=== PATIENT | female | born 1945 | race Caucasian/White ===

== ENCOUNTER 2017-09-03 14:05 | Emergency (ER) | payer MEDICARE, SELFPAY ==
[2017-09-03 14:05] VITALS: BP 158/93; PULSE 82; RESP 16; TEMP 36.2; O2SAT 95; BMI 35.6
--- NOTE | 2017-09-03 14:57 | EKG12_ITS ---
Test Reason : Blood Pressure : / mmHG Vent. Rate : 066 BPM Atrial Rate : 066 BPM P-R Int : 176 ms QRS Dur : 086 ms QT Int : 402 ms P-R-T Axes : 005 006 -15 degrees QTc Int : 421 ms Normal sinus rhythm Normal ECG Confirmed by MYLES EDWARDS MD ([id number]), website/blog editor DINAH ROBBINS ([id number] on 09/06/2017 2:52:46 PM Referred By: AMAURY Confirmed By:MYLES EDWARDS MD
--- NOTE | 2017-09-03 14:59 | ED.VISSUMM ---
- ER Visit Summary Date of Service: 09/03/17 Chief Complaint: High blood pressure and blurry vision History of Present Illness: The patient is a 71 F presents for blurry vision and high blood pressure for 1 week. Patient states that when she noted she had blurry vision with an associated full feeling in her head, she went to her neighbors to have her blood pressure checked. It was high so she took an extra atenolol and her symptoms resolved. She has been having the blurry vision return throughout the week and each time we will taken atenolol after seeing her blood pressure is high with resolution of symptoms. Today she decided to get checked out for it. She went to urgent care and was referred here. She normally wears reading glasses but denies needing corrective lenses for any other vision. No fever, chest pain, shortness of breath, abdominal pain, vomiting, diarrhea. She has been taking tramadol and Tylenol for her head discomfort, which she states is chronic for her. History of hypertension and asthma. Physical Examination: Vital signs: afebrile, hemodynamically stable, blood pressure 158/93, no hypoxia on room air General: well nourished, well developed, in no distress Skin: warm, dry, no rash, no pallor HEENT: normocephalic and atraumatic; PERRL, EOMI, no nystagmus, visual tracy intact, vision grossly normal, moist mucous membranes Cardiovascular: regular rate and rhythm without murmurs, no peripheral edema, 2+ pulses all distal extremities Respiratory: No increased work of breathing, lungs are clear to auscultation bilaterally, no rales, rhonchi or wheezing Abdominal: Abdomen is soft, nontender with normoactive bowel sounds, no guarding or rebound, no masses MSK: Moves all extremities, no deformities, normal strength Neuro: Awake and alert, oriented ?4. No facial droop, sensation and motor function intact and symmetric Test Results: Abnormal Lab Results 09/03/17 09/03/17 14:20 14:20 WBC 6.7 RBC 5.08 Hgb 14.7 Hct 45.5 MCV 89.6 MCH 28.9 MCHC 32.3 RDW 12.8 RDW Differential 41.4 Plt Count 281 MPV 10.7 Immature Gran % (Auto) 0.100 Neut % (Auto) 63.7 Lymph % (Auto) 25.0 [place] % (Auto) 7.8 Eos % (Auto) 3.0 Baso % (Auto) 0.4 Absolute Neuts (auto) 4.3 Absolute Lymphs (auto) 1.67 Total Counted Not Reportable Sodium 139 Potassium 3.9 Chloride 103 Carbon Dioxide 29.0 Anion Gap 7 BUN 13 Creatinine 0.77 Estim Creat Clear Calc 41.99 Est GFR (MDRD) Af Amer 96 Est GFR (MDRD) Non-Af 79 BUN/Creatinine Ratio 17.0 Glucose 122 H Calcium 9.1 Troponin I < 0.02 Emergency Department Course and Treatment: Patient had an unremarkable exam. Workup was performed to evaluate for any endorgan damage. EKG showed no ischemic changes. CT of the head showed no masses or intracranial hemorrhage. Troponin negative. Labs were unremarkable. Patient had no further blurry vision. Her blood pressure was not consistent with elevation that should result in endorgan damage or symptomatic issues. Patient was discussed with Dr. Bernardo, who requested that patient's dosage of her atenolol be increased to 50 mg, which is twice her current dose. She will take this new dose daily. She is to follow-up with him within 1-2 weeks. This plan was discussed with the patient who was in agreement. She was discharged home in improved condition and very well-appearing. Treatment Plan: [] Disposition: [] Impression: Established hypertension This note was generated with [employer] dictation software. It may contain incorrect words, spelling, and punctuation that were not noted in review of the chart prior to signing ED Disposition - Plan for ED Patient: Disposition: Home or Assisted Living Chief Complaint: General Illness Instructions: ED HTN Established Referrals: Fernando Bernardo MD [Primary Care Provider] - 1-2 Weeks Additional Instructions: Please increase your dose of atenolol to 50 mg daily. You are currently taking 25 mg daily,, so please take two of your 25 mg tablets to make the new dose. These follow-up with Dr. Bernardo in 1-2 weeks for reevaluation. If at any point you have any worsening of your condition or any new concerning symptoms, please return immediately for another evaluation to the emergency department.
[2017-09-03 15:14] LABS: Absolute Lymphocyte Count 1.67 X10^3/ul (0.83-4.51); Absolute Neutrophil Count 4.3 X10^3/uL (2.0-7.7); Basophil# 0.03 X10^3/uL; Basophil% 0.4 % (0-1); Hematocrit 45.5 % (37-47); Hemoglobin 14.7 g/dl (12.0-15.0); Lymphocyte # 1.67 X10^3/ul (4.0); Mean Corp Hgb Conc 32.3 g/gl (32-36); Mean Corpuscular Hgb 28.9 pg (27.0-32.0); Mean Corpuscular Volume 89.6 fL (81-99); Mean Platelet Vol. 10.7 fl (6.2-12.0); Monocyte# 0.52 X10^3/uL; Monocyte% 7.8 % (0-10); Neutrophil # 4.25 X10^3/uL (2.7-7.7); Neutrophil % 63.7 % (47-70); POSITIVE COUNT NO; POSITIVE DIFFERENTIAL NO; POSITIVE MORPHOLOGY NO; Platelet Count 281 K/mm3 (150-450); RBC Distribution Width CV 12.8 % (11.6-14.6); RBC Distribution Width SD 41.4 fl (35.1-43.9); Red Blood Count 5.08 M/mm3 (4.2-5.4); White Blood Count 6.7 K/mm3 (4.4-11.0)
[2017-09-03 15:27] LABS: Anion Gap 7 (5-15); BUN 13 mg/dL (7-18); Calcium,Total 9.1 mg/dL (8.5-10.1); Chloride 103 mmol/L (98-107); Creatinine, Serum 0.77 mg/dL (0.55-1.02); EST Glomerular Filtration Rate 79 mL/min (>60); Est Glom Filt Rate - Afr Amer 96 mL/min (>60); Estimated Creatinine Clearance 41.99 ml/min; Glucose 122 mg/dL (74-106); Potassium 3.9 mmol/L (3.5-5.1); Sodium Level 139 mmol/L (136-145)
--- NOTE | 2017-09-03 16:10 | RAD_ITS ---
STUDY: X-RAY CHEST REASON FOR EXAM: Female, 71 years old. Blurred vision, dizziness, shortness of breath and nausea for one week. TECHNIQUE: 2 views COMPARISON: Prior chest radiograph from April 19, 2015 FINDINGS: The lungs are clear and expanded. There is no demonstrated pleural abnormality. Normal size heart. Normal mediastinum and marisol. Normal visualized pulmonary arteries. There is atherosclerotic calcification of the aortic arch with tortuosity. Normal visualized thoracic spine. Normal visualized ribs, clavicles, and shoulders. There is no demonstrated abnormality of the visualized soft tissue structures of the upper abdomen. RAD/Chest PA and Lateral IMPRESSION: No acute cardiopulmonary findings or changes. Negative for consolidation, focal atelectasis, pleural effusion or cardiomegaly. Electronically Signed: Miriam Bravo MD at 16:58 EST , Service support ,
--- NOTE | 2017-09-03 16:10 | CT_ITS ---
STUDY: CT BRAIN WITHOUT CONTRAST REASON FOR EXAM: Female, 71 years old. Dizziness, blurred vision and hypertension. RADIATION DOSAGE (If Supplied By Facility): CTDIvol = ( 44.99 ) mGy, DLP = ( 745.99 ) mGycm TECHNIQUE: Transaxial CT imaging of the brain was performed without administration of intravenous contrast material. Individualized dose optimization techniques were used for this CT. COMPARISON: None. FINDINGS: Normal soft tissue structures. Normal calvarium. Normal size ventricles and extra-axial spaces for the patient's age. There are areas of decreased attenuation within the white matter tracts of the supratentorial brain, consistent with microvascular disease changes. There are small punctate calcifications of the basal ganglia which are seen in the aging brain as a normal variant. Normal brainstem. Normal cerebellum. There is no intracranial hemorrhage. There are no findings of an acute ischemic infarction. Minimal area of mucosal thickening at the base of the right frontal sinus. Other paranasal sinuses are clear. CT/Brain/Head without Contrast IMPRESSION: No acute intracranial findings. Negative for hemorrhage, hematoma or mass density. Negative for demarcation of a new nonhemorrhagic infarct zone. Mild involutional changes. Minimal mucosal thickening at the base of the right frontal sinus. Electronically Signed: Miriam Bravo MD at 16:55 EST , Service support ,
--- NOTE | 2017-09-03 17:18 | ED.DEP ---
ED Disposition - Plan for ED Patient: Disposition: Home or Assisted Living Chief Complaint: General Illness Instructions: ED HTN Established Referrals: Fernando Bernardo MD [Primary Care Provider] - 1-2 Weeks Additional Instructions: Please increase your dose of atenolol to 50 mg daily. You are currently taking 25 mg daily,, so please take two of your 25 mg tablets to make the new dose. These follow-up with Dr. Bernardo in 1-2 weeks for reevaluation. If at any point you have any worsening of your condition or any new concerning symptoms, please return immediately for another evaluation to the emergency department.
[2017-09-03 17:34] VITALS: BP 135/85; PULSE 73; RESP 15; RESP 18; O2SAT 94
== END 2017-09-03 17:35 | disposition home or self-care (01) ==
PROVIDERS: Emergency Provider Emergency Medicine; Family Provider Family Medicine; PCP Family Medicine
DX: I10 Essential (primary) hypertension (principal); J45.909 Unspecified asthma, uncomplicated
CPT/HCPCS: 70450; 71046; 80048; 84484; 85025; 93005; 99283

== ENCOUNTER 2019-03-14 13:25 | Emergency (ER) | payer MEDICARE, SELFPAY ==
[2019-03-14 13:25] VITALS: BP 126/89; PULSE 71; RESP 16; TEMP 36.6; O2SAT 96; BMI 37.0
--- NOTE | 2019-03-14 13:39 | RAD_ITS ---
STUDY: X-RAY CHEST REASON FOR EXAM: Female, 73 years old. Five-day history of cough and cold-like symptoms. TECHNIQUE: PA and lateral views of the chest. COMPARISON: Comparison is made with prior examination September 03, 2017. FINDINGS: Hyperinflation. Mild degree of increased lingular markings suggestive of lingular atelectasis and/or infiltrate. Normal size heart. Normal mediastinum and marisol. Normal visualized pulmonary arteries. There is atherosclerotic calcification of the aortic arch with tortuosity. There is demineralization of the osseous structures. Normal visualized ribs, clavicles, and shoulders. There is no demonstrated abnormality of the visualized soft tissue structures of the upper abdomen. RAD/Chest PA and Lateral IMPRESSION: Increased lingular markings suggestive of atelectasis and/or early infiltrate. Follow-up is recommended. Electronically Signed: Antonio Zelaya, at 14:40 EDT , Service support ,
--- NOTE | 2019-03-14 13:40 | ED.VIS.GEN ---
History of Present Illness Chief Complaint: Cough Informant: Patient Onset: Days - 5 Narrative: 5-day history of cough and congestion, states productive sputum. No chest pains. No fever, chills, sweats. History of asthma on inhalers. No diabetes history. Increasing wheezing. Posttussive emesis x1. No diarrhea. No chest pains or abdominal pain. Sick contacts with grandson with similar symptoms. No tobacco history. Prior similar symptoms: Yes Past Medical History - Allergies and Home Meds Allergies/Adverse Reactions: Allergies No Known Allergies Allergy (Verified 03/14/19 13:27) Primary Care Physician: Fernando Bernardo MD [Primary Care Provider] - Surgical History: no surgical history Smoking Status: Never smoker Review of Systems General: Denies: Chills, Fever, Sweats Eyes: Denies: Visual changes - bilaterally, Diplopia ENT: Denies: Rhinorrhea, Sore throat Cardiovascular: Denies: Chest pain, Palpitations Respiratory: Reports: Dyspnea, Cough. Denies: Dyspnea on exertion Gastrointestinal: Denies: Abdominal pain, Nausea, Vomiting, Diarrhea, Melena, Hematochezia Genitourinary: Denies: Dysuria, Hematuria, Frequency Musculoskeletal: Denies: Back pain, Extremity Pain Skin: Denies: Rash, Wounds Neurological: Denies: Headache, Weakness, Numbness Physical Exam Vital Signs/Narrative: Vital Signs Temp Pulse Resp BP Pulse Ox 03/14/19 13:25 98 F 71 16 126/89 H 96 Inital Vital Signs reviewed: Yes General: Well nourished, Well developed, No Acute Distress Head: Normocephalic, Atraumatic Eyes: Perrl, EOMI ENT: Moist mucous membranes, No rhinorrhea Neck: Supple, Nontender Cardiovascular: Regular rate, Regular rhythm, No murmurs Respiratory: No distress, Rhonchi, Wheezing, - - Expiratory wheezing noted, no respiratory distress, no accessory muscle use. Abdomen: Soft, Nontender, Nondistended, Normal bowel sounds Back: Nontender, Normal Inspection Extremities: Nontender, No edema Skin: Normal color, No rash Neurological: Alert, Oriented x3, Cranial nerves II-XII grossly intact, Normal Strength, Normal Sensation Psychological: Normal affect, Normal Mood Diagnostic/Tx/Re-eval Chest X-Ray - ED: 2 View, Read by ED Physician, No Acute Disease Patient vital signs stable. Rhonchi and wheezing, is treated with aerosol treatment steroids due to asthma history. Chest x-ray 2 views reviewed by myself does not know any infiltrates or acute process. Reevaluation symptoms improved there is no wheezing. Additional 4 days of steroids, continue her aerosols at home. Strict signs and symptoms discussed to return otherwise follow-up with her PCP. All questions were answered. ED Disposition - Plan for ED Patient: Disposition: Home or Assisted Living Diagnosis: Asthma exacerbation, URI (upper respiratory infection) Instructions: ASTHMA, Acute (Adult), BRONCHITIS, No Antibiotic (Adult) Prescriptions: predniSONE tablet 60 mg PO DAILY #12 tablet Referrals: Fernando Bernardo MD [Primary Care Provider] - 5-7 Days
[2019-03-14] MEDS: Ipratropium/Albuterol Sulfate 3 ML AMPUL.NEB INHALATION (13:46)
[2019-03-14 13:47] VITALS: RESP 24
[2019-03-14] MEDS: Albuterol 2.5 MG/3 ML VIAL.NEB. INHALATION (13:47)
[2019-03-14] MEDS: predniSONE 20 MG Tablet 60 MG PO (13:54)
[2019-03-14 15:23] VITALS: BP 138/71; PULSE 79; RESP 20; O2SAT 95
== END 2019-03-14 15:24 | disposition home or self-care (01) ==
PROVIDERS: Emergency Provider Emergency Medicine; Family Provider Family Medicine; PCP Family Medicine
DX: J45.901 Unspecified asthma with (acute) exacerbation (principal); J06.9 Acute upper respiratory infection, unspecified
CPT/HCPCS: 71046; 94640; 99283